=== PATIENT | female | born 1950 | race Caucasian/White ===

== ENCOUNTER 2016-09-09 11:18 | Outpatient (CLI) | payer OTHER ==
--- NOTE | 2016-09-09 14:27 | DIAGNOSTIC IMAGING REPORT ---
PROCEDURE: MG BILATERAL SCREENING W/CAD INDICATION: Screening, personal history of left breast cyst drainage TECHNIQUE: Standard CC and MLO views bilaterally. Computer aided detection was used. COMPARISON: 04/20/2008, 08/21/2005 FINDINGS: Heterogeneous, moderately dense fibroglandular tissue is present bilaterally. There is a small group of indeterminate microcalcifications in the medial right breast at the posterior fat glandular interface is seen on the CC view only. In the left breast, there is a focal glandular asymmetry adjacent to slight architectural distortion and with vague, associated microcalcifications. This is located centrally within the posterior glandular tissue on the CC and MLO views. IMPRESSION: 1. Indeterminate right breast microcalcifications. Further evaluation with spot magnification and direct lateral right mammogram with possible spot magnification is recommended. 2. Vague area of architectural distortion with questionable focal glandular asymmetry and associated indeterminate microcalcifications in the left breast. Spot compression, magnification, and ultrasound are recommended. RESULT CODE: 0- Incomplete; needs additional evaluation. A. A negative report should not delay biopsy if a dominant or clinically suspicious mass is present. 10-15% of cancers are not identified by x-ray. B. A negative report may reinforce clinical impression. C. Adenosis and dense breasts may obscure an underlying neoplasm. D. False positive reports average 6-10%. E.. A yearly screening mammogram is recommended. A reminder letter will be scheduled.
== END 2016-09-09 23:00 ==
LOC: MAM SRH 11:18
DX: Z12.31 Encounter for screening mammogram for malignant neoplasm of breast (principal)

== ENCOUNTER 2016-09-24 10:42 | Outpatient (CLI) | payer OTHER ==
--- NOTE | 2016-09-24 13:38 | DIAGNOSTIC IMAGING REPORT ---
PROCEDURE: MG BILATERAL DIAGNOSTIC W/CAD INDICATION: Bilateral call back for microcalcifications and density. TECHNIQUE: Spot compression magnification views of the medial aspect of each breast in the CC and MLO projections. Direct lateral bilateral mammograms. CAD was used. The patient then went on to ultrasound where sanchez scale and color Doppler sonographic imaging of the left breast was performed. COMPARISON: 09/09/2016, 04/20/2008, 08/21/2005 FINDINGS: Mammograms: Right breast: With spot magnification CC view, medial posterior the calcifications demonstrated dystrophic morphology. There are not well seen on the lateral view, although they are is suspected to be at a two o'clock position. No associated density with spot compression. Left breast: With spot compression, the density and architectural distortion seen on screening mammogram dissipates. There is heterogeneous glandular tissue in the region. Microcalcifications have dissipated, do not appear to be grouped, or associated with a discrete density. Ultrasound: Left breast: Heterogeneous dense glandular tissue is seen. No discrete density or suspicious shadowing in the expected location of the mammographic density (12 o'clock). A 5 mm lymph node, two four and 7 mm finely septated cystic structures are incidentally noted anterior within the left breast, not corresponding to mammographic findings. IMPRESSION: 1. Probably benign, very faint right breast microcalcifications. 6-month follow-up spot magnification views of the right breast are recommended. 2. No persistent mammographic or sonographic left breast abnormality. Screening mammography finding was likely related to overlapping glandular tissue. The tissue is heterogeneously dense, and a small underlying mass may be missed by mammogram and ultrasound. 6-month follow-up left breast mammogram is recommended. 3. Findings and recommendations were discussed with the patient. RESULT CODE: 3- Probably benign.
== END 2016-09-24 23:00 ==
LOC: MAM SRH 10:42
DX: R92.0 Mammographic microcalcification found on diagnostic imaging of breast (principal)